=== PATIENT | male | born 1945 | race Asian ===

== ENCOUNTER → 2018-06-08 11:00 | Outpatient (CLI) | payer BC | END | disposition home or self-care (01) | LOC: D.CT 11:00 | DX: R91.1 Solitary pulmonary nodule (principal) ==

== ENCOUNTER → 2018-06-18 10:03 | Outpatient (CLI) | payer BC | END | disposition home or self-care (01) | LOC: D.LABREF 10:03 | DX: D17.21 Benign lipomatous neoplasm of skin and subcutaneous tissue of right arm (principal) ==